=== PATIENT | female | born 1945 | race Caucasian/White ===

== ENCOUNTER 2019-11-07 15:46 | Outpatient (CLI) | payer OTHER, SELFPAY ==
--- NOTE | ~2019-11-07 | XR_ITS ---
EXAMINATION: XR abdomen/kub 1V EXAM DATE: 11/07/2019 16:20 INDICATION: Gross hematuria. TECHNIQUE: Frontal projection(s) of the abdomen for interpretation. Correlation is made to CT urogram same date. FINDINGS: No suspicious soft tissue calcifications identified. There are cholecystectomy clips. Nono bstructive bowel gas pattern. Moderate bilateral hip primary osteoarthritis. IMPRESSION: Unremarkable KUB exam. Reviewed, dictated and finalized at location A. IMPRESSION: Unremarkable KUB exam.
--- NOTE | ~2019-11-07 | CT_ITS ---
EXAMINATION: CT abdomen pelvis wo/w con EXAM DATE: 11/07/2019 16:56 INDICATION: Hematuria. TECHNIQUE: Spiral CT of the abdomen and pelvis was performed without contrast. The patient was then injected with small bolus intravenous Omnipaque 350, followed by delay of approximately 10 minutes to allow collecting system to opacify. A post contrast scan abdomen and pelvis was performed during inj ection of remaining contrast. A total of 130 cc intravenous contrast was administered. The dose-zunilda th product (DLP) for this examination was 2574.15 mGy-cm. The exposure was tailored according to pat ient size (auto mA exposure control), and iterative reconstruction (ASIR) was used as additional dose reduction technique. There is no prior study for comparison. FINDINGS: There is no hydronephrosis or nephrolithiasis. Left renal peripelvic cyst measuring about 1 x 2 cm. The kidneys enhance symmetrically. There are no suspicious renal lesions. The calyces an d opacified portions of ureters are unremarkable, without filling defects or focal suspicious strictu res. The bladder is unremarkable. The uterus is not identified and has likely been surgically resec jayda. The liver, spleen, adrenal glands and pancreas are unremarkable. There are cholecystectomy clips. T here is no retroperitoneal or pelvic lymphadenopathy. There is mild to moderate scattered arteriosc lerotic disease. The appendix is normal. There is small sliding gastroesophageal hiatal hernia. There is expected am ount of colonic stool. There is fair amount of pelvic fat surrounding the rectum, could indicate rect al prolapse. No free intraperitoneal gas. The heart is normal in size. There are no pericardial or pleural effusions. The lung bases are unremarkable. There are no osteoblastic or osteolytic lesion s identified. IMPRESSION: 1. No suspicious genitourinary findings. 2. Possible rectal prolapse. Reviewed, dictated and finalized at location A.
[2019-11-07 16:33] LABS: Estimated Glomerular Filt Rate > 60
== END 2019-11-07 15:47 | disposition home or self-care (01) ==
PROVIDERS: PCP Internal Medicine Geriatric Medicine; Visit Provider Nurse Practitioner Adult Health
DX: R31.0 Gross hematuria (principal)
CPT/HCPCS: 36415; 74018; 74178; Q9967

== ENCOUNTER 2019-12-10 10:36 | Outpatient (CLI) | payer OTHER, SELFPAY ==
--- NOTE | 2019-12-10 10:45 | ECG_ITS ---
Measurements Intervals [place] Rate: 70 P: 13 PA: 191 QRS: -69 QRSD: 138 T: -24 QT: 426 QTc: 462 Interpretive Statements SINUS RHYTHM RIGHT BUNDLE BRANCH BLOCK ANTEROLATERAL INFARCT, AGE INDETERMINATE INFERIOR INFARCT, AGE INDETERMINATE BASELINE ARTIFACT- I, II, III, AVR, AVL, AVF ABNORMAL ECG Electronically Signed On 12-10-2019 11:18:17 CDT by Ji Larson D.O.
[2019-12-10 11:12] LABS: Anion Gap 7 mmol/L (8-16); Blood Urea Nitrogen 15 mg/dL (7-17); Calcium 9.4 mg/dL (8.4-10.2); Carbon Dioxide 31 mmol/L (22-30); Chloride 98 mmol/L (98-107); Estimated Glomerular Filt Rate > 60; Glucose 217 mg/dL (65-105); Potassium 4.6 mmol/L (3.4-5.0); Sodium 136 mmol/L (137-145)
== END 2019-12-10 10:37 | disposition home or self-care (01) ==
LOC: ANHSURGERY 10:40
PROVIDERS: Anesthesiology; PCP Internal Medicine Geriatric Medicine; Visit Provider Urology
DX: E11.9 Type 2 diabetes mellitus without complications (principal); I10 Essential (primary) hypertension; I45.10 Unspecified right bundle-branch block; R94.39 Abnormal result of other cardiovascular function study
CPT/HCPCS: 36415; 80048; 93005

== ENCOUNTER 2019-12-11 00:07 | Outpatient (CLI) | payer OTHER, SELFPAY ==
[2019-12-11 17:25] LABS: SARS-CoV-2 RNA PCR Negative
== END 2019-12-11 00:08 | disposition home or self-care (01) ==
LOC: ANHCOVIDDT 00:08
PROVIDERS: PCP Internal Medicine Geriatric Medicine; Visit Provider Urology
DX: Z01.812 Encounter for preprocedural laboratory examination (principal); Z20.828 Contact with and (suspected) exposure to other viral communicable diseases
CPT/HCPCS: 87635; C9803; U0003

== ENCOUNTER 2019-12-13 00:44 | Day surgery (SDC) | payer OTHER, SELFPAY ==
[2019-12-06 13:15] VITALS: BMI 34.8
[2019-12-13] VITALS (7 sets, daily range): BP systolic 101–144; BP diastolic 44–61; PULSE 62–73; RESP 9–20; TEMP 36.1–36.4; O2SAT 94–100
--- NOTE | ~2019-12-13 | XR_ITS ---
EXAMINATION: XR retrograde pyelogram BI DATE: 12/13/2019 13:34 CDT INDICATION: Gross hematuria TECHNIQUE: A fluoroscopic images from a bilateral retrograde pyelogram are submitted for review.] 18 seconds of fluoroscopy. FINDINGS: There is normal contrast opacification of the ureters and renal collecting systems which ar e normal in course and caliber. No persistent filling defects, strictures or extravasation of contras t. There are cholecystectomy clips. IMPRESSION: 1. Unremarkable bilateral retrograde pyelogram.. Correlate with real time procedural findings for de tails. Reviewed, dictated and finalized at location B. IMPRESSION: 1. Unremarkable bilateral retrograde pyelogram.. Correlate with real time proc edural findings for details.
--- NOTE | 2019-12-13 07:02 | WPDHPUPDATE1 ---
History and Physical Update Update Date/Time: 12/13/19 07:02 History and Physical has been reviewed, including an updated exam of the patient. There are NO changes in the patient's condition. Risks, benefits, and alternatives have been discussed and questions answered. Patient agrees to proceed with procedure.
--- NOTE | 2019-12-13 10:59 | WPDANESEPPF ---
Anes - Initial Pre Proc Eval Procedure: Operation Date: 12/13/19 12:45 Proposed Procedures p Cystoscopy, Bilateral Retrograde Pyelogram - Jamie Guaman MD s Transurethral Resection Bladder Tumor - Jamie Guaman MD Date/Time: 12/13/19 10:59 Surgeon: Jamie Guaman MD Pre Op Diagnosis: Bladder Ca Patient Data Age: 74 Gender: F Height: 5 ft 4 in Weight: 92 kg Allergies Allergy/AdvReac Type Severity Reaction Status Date / Time No Known Allergies Allergy Verified 12/06/19 13:06 Home Medications Medication Instructions Recorded Confirmed Type aspirin [Aspirin Low Dose] 81 mg PO HS 12/06/19 12/06/19 History cyanocobalamin (vitamin B-12) 1,000 mcg PO HS 12/06/19 12/06/19 History [Vitamin B-12] dulaglutide [Trulicity] 1.5 mg SUBCUT WEEKLY 12/06/19 12/06/19 History glimepiride 2 mg PO HS 12/06/19 12/06/19 History metformin 2,000 mg PO HS 12/06/19 12/06/19 History metoprolol succinate 100 mg PO HS 12/06/19 12/06/19 History olmesartan-hydrochlorothiazide 1 tablet PO HS 12/06/19 12/06/19 History rosuvastatin 20 mg PO HS 12/06/19 12/06/19 History sertraline 50 mg PO HS 12/06/19 12/06/19 History Patient hx anesthesia problems: none Family hx anesthesia problems: none PMFSH Past Medical History Medical History Bladder cancer Depression Diabetes Hyperlipidemia Hypertension Social History Social History Smoking status: Never smoker Alcohol intake: never Substance use: never Living arrangements: with family Additional living arrangements comments: LIVES WITH SISTER-[facility]J Spiritual care concerns: No Anes - Eval Final PreProcedure Day of Procedure 12/13/19 10:59 Patient weight: obese Heart: regular rate and rhythm Lungs: clear to auscultation Airway: Mallampati scale class II Neurological: alert and oriented Last oral intake: >/= 8 hours ASA classification: III Emergent: no Anesthetic plan: proceed Anesthesia type and monitoring: general LMA and standard monitoring Informed Consent: The patient's anesthetic plan and its attendant risks and benefits were discussed with the patient/family/POA. Questions were solicited and answers provided to the satisfaction of the patient/family/POA.
[2019-12-13 11:24] LABS: Glucose Point of Care 216 (65-105)
[2019-12-13] MEDS: LACTATED RINGERS 1,000 ML 30 ML IV CONT (11:32)
--- NOTE | 2019-12-13 11:37 | SUR.PREOP ---
1138 - dr. romo aware of accucheck of 216. no orders received
[2019-12-13] MEDS: ceFAZolin 2 GM/D5W 50 ML 2 GM/50 ML BAG IVPB (12:39)
--- NOTE | 2019-12-13 13:05 | P.OP_ITS ---
Procedure Note - Detailed Date of procedure: 12/13/19 Pre-op diagnosis: Bladder Ca Post-op diagnosis: same Procedure performed: 1. TURBT (medium). 2. Cysto., bilateral PRG Description of procedure: The patient was brought to the operative suite where she is prepped and draped in a routine sterile fashion while in the dorsal lithotomy position. This is done after the uneventful administration of general LMA anesthetic. A 24F resectoscope sheath was placed in the bladder and the bladder is circumferentially inspected carefully. Retrograde pyelography is undertaken with an 8 F bulb-tipped catheter. Both ureters and collecting sys tems appeared normal without obstruction or filling defects. 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 This area is resected in its entirety with an attempt made to include detrusor muscle for pathological evaluation of invasion. The base and periphery of this resected side is cauterized with a loop electrode. The bladder is emptied and t he resectoscope was removed. The patient is taken to the recovery room having tolerated this procedure well. Anesthesia: GLMA Surgeon: Jamie Guaman MD Estimated blood loss (mL): 5 Drains: No Packing: No Pathology: yes (Bladder tumor) Complications: No immediate complications Condition: stable Disposition: PACU
[2019-12-13 13:41] LABS: Glucose Point of Care 182 (65-105)
== END 2019-12-13 15:00 | disposition home or self-care (01) ==
PROVIDERS: PCP Internal Medicine Geriatric Medicine; Visit Provider Urology
PROC: (CPT 52352; principal; 2019-12-13 12:45)
PROC: 0TBB8ZZ Excision of Bladder, Via Natural or Artificial Opening Endoscopic (ICD-10-PCS; CPT 52235; 2019-12-13 12:45)
DX: C67.3 Malignant neoplasm of anterior wall of bladder (principal); I10 Essential (primary) hypertension; E78.5 Hyperlipidemia, unspecified; E11.9 Type 2 diabetes mellitus without complications; F32.9 Major depressive disorder, single episode, unspecified; Z79.84 Long term (current) use of oral hypoglycemic drugs; Z79.82 Long term (current) use of aspirin; E66.9 Obesity, unspecified; Z68.34 Body mass index [BMI] 34.0-34.9, adult
CPT/HCPCS: 52235; 74420; 88305; 88307; A9270; C1758; C1769; J0690; J1100; J2405; J2704; J3010; J7120; Q9966

== ENCOUNTER 2020-04-07 00:44 | Outpatient (CLI) | payer OTHER, SELFPAY ==
[2020-04-07 19:06] LABS: SARS-CoV-2 RNA PCR Positive
== END 2020-04-07 00:45 | disposition home or self-care (01) ==
LOC: ANHCOVIDDT 00:44
PROVIDERS: PCP Internal Medicine Geriatric Medicine; Visit Provider Urology
DX: Z01.812 Encounter for preprocedural laboratory examination (principal); Z20.822 Contact with and (suspected) exposure to COVID-19
CPT/HCPCS: C9803; U0003

== ENCOUNTER 2020-04-07 08:40 | Outpatient (CLI) | payer OTHER, SELFPAY ==
[2020-04-07 09:11] LABS: Anion Gap 4 mmol/L (8-16); Blood Urea Nitrogen 12 mg/dL (7-17); Calcium 8.3 mg/dL (8.4-10.2); Carbon Dioxide 31 mmol/L (22-30); Chloride 105 mmol/L (98-107); Estimated Glomerular Filt Rate > 60; Glucose 114 mg/dL (65-105); Potassium 3.6 mmol/L (3.4-5.0); Sodium 140 mmol/L (137-145)
== END 2020-04-07 08:41 | disposition home or self-care (01) ==
LOC: ANHSURGERY 08:41
PROVIDERS: Anesthesiology; PCP Internal Medicine Geriatric Medicine; Visit Provider Urology
DX: Z01.818 Encounter for other preprocedural examination (principal); E11.9 Type 2 diabetes mellitus without complications
CPT/HCPCS: 36415; 80048

== ENCOUNTER 2020-05-08 00:42 | Day surgery (SDC) | payer OTHER, SELFPAY ==
[2020-04-02 14:59] VITALS: BMI 34.8
--- NOTE | 2020-04-07 07:53 | P.HP_ITS ---
H&P: HPI History of Present Illness Date/Time: 04/07/20 07:53 Chief Complaint: Recurrent bladder tumor Narrative: Rafia Rivas is a 74 year old female who had her 1st bladder tumor resection in November 2019. She now was found to have a 2 centimeter papillary recurrent neoplasm in the anterior bladder wall. Review of Systems Cardiovascular: Cardiovascular: Denies chest pain, Denies lightheadedness, Denies palpitations and Denies dyspnea Respiratory: Respiratory: Denies dyspnea Gastrointestinal: Gastrointestinal: Denies diarrhea, Denies nausea and Denies vomiting Genitourinary: Genitourinary: Denies hematuria and Denies dysuria Endocrine: Endocrine: Denies palpitations PMFSH Past Medical History Medical History (Updated 04/07/20 @ 07:55 by Jamie Guaman MD) Bladder cancer Depression Diabetes Hyperlipidemia Hypertension Social History Social History Smoking status: Never smoker Alcohol intake: never Substance use: never Additional living arrangements comments: LIVES WITH ELDERLY/ILL SISTER- CURRENTLY IN HOSPITAL Spiritual care concerns: No Meds Home Medications and Allergies Home Medications Medication Instructions Recorded Confirmed Type Trulicity 1.5 mg SUBCUT WEEKLY 12/06/19 04/02/20 History aspirin [Aspirin Low Dose] 81 mg PO HS 12/06/19 04/02/20 History cyanocobalamin (vitamin B-12) 1,000 mcg PO HS 12/06/19 04/02/20 History [Vitamin B-12] glimepiride 2 mg PO HS 12/06/19 04/02/20 History metformin 2,000 mg PO HS 12/06/19 04/02/20 History metoprolol succinate 100 mg PO HS 12/06/19 04/02/20 History olmesartan-hydrochlorothiazide 1 tablet PO HS 12/06/19 04/02/20 History rosuvastatin 20 mg PO HS 12/06/19 04/02/20 History sertraline 50 mg PO HS 12/06/19 04/02/20 History hydrocodone-acetaminophen 1 - 2 tablet PO Q6H PRN #20 tablet 12/13/19 04/02/20 Rx Allergies Allergy/AdvReac Type Severity Reaction Status Date / Time No Known Allergies Allergy Verified 04/02/20 14:51 Exam Const: General: no acute distress Resp: Effort & Inspection: normal respiratory effort GI: Inspection: non-distended GI Palp: No abdominal tenderness and No Guarding due to palpation present (GI) Auscultation: normal bowel sounds Assessment and Plan Assessment and plan (1) Cancer of anterior wall of urinary bladder: Code(s): C67.3 - Malignant neoplasm of anterior wall of bladder Status: Acute Assessment and Plan: * TURBT
--- NOTE | 2020-05-05 08:03 | P.HP_ITS ---
History of Present Illness History of Present Illness Consent: Risks, benefits, and alternatives have been discussed and questions answered. Patient agrees to proceed with procedure. Chief complaint: bladder CA Narrative: Rafia Rivas is a 74 year old female Who underwent her initial bladder tumor resection and December 2019. Her 1st surveillance cystoscopy showed approximately a 2 cm recurrence in the anterior bladder wall. See elects for TURBT. She is aware the risks, including but not limited to, adverse cardiopulmonary events, postoperative hematuria and compromise to the bladder wall. Review of Systems Cardiovascular: Cardiovascular: Denies chest pain, Denies lightheadedness, Den ies palpitations and Denies dyspnea Respiratory: Respiratory: Denies dyspnea Gastrointestinal: Gastrointestinal: Denies diarrhea, Denies nausea and Denies vomiting Genitourinary: Genitourinary: Denies hematuria and Denies dysuria Endocrine: Endocrine: Denies palpitations PMFSH Past Medical History Medical History Bladder cancer Depression Diabetes Hyperlipidemia Hypertension Social History Social History Smoking status: Never smoker Alcohol intake: never Substance use: never Additional living arrangements comments: LIVES WITH ELDERLY/ILL SISTER- CURRENTLY IN HOSPITAL Spiritual care concerns: No Meds Home Medications and Allergies Home Medications Medication Instructions Recorded Confirmed Type Trulicity 1.5 mg SUBCUT WEEKLY 12/06/19 04/24/20 History aspirin [Aspirin Low Dose] 81 mg PO HS 12/06/19 04/24/20 History cyanocobalamin (vitamin B-12) 1,000 mcg PO HS 12/06/19 04/24/20 History [Vitamin B-12] glimepiride 2 mg PO HS 12/06/19 04/24/20 History metformin 2,000 mg PO HS 12/06/19 04/24/20 History metoprolol succinate 100 mg PO HS 12/06/19 04/24/20 History olmesartan-hydrochlorothiazide 1 tablet PO HS 12/06/19 04/24/20 History rosuvastatin 20 mg PO HS 12/06/19 04/24/20 History sertraline 50 mg PO HS 12/06/19 04/24/20 History hydrocodone-acetaminophen 1 - 2 tablet PO Q6H PRN #20 tablet 12/13/19 04/24/20 Rx Allergies Allergy/AdvReac Type Severity Reaction Status Date / Time No Known Allergies Allergy Verified 04/24/20 13:36 Exam Const: General: no acute distress Resp: Effort & Inspection: normal respiratory effort GI: Inspection: non-distended GI Palp: No abdominal tenderness and No Guarding due to palpation present (GI) Auscultation: normal bowel sounds Assessment and Plan Assessment and plan (1) Cancer of anterior wall of urinary bladder: Code(s): C67.3 - Malignant neoplasm of anterior wall of bladder Status: Acute Additional Plan * TURBT
[2020-05-08] VITALS (9 sets, daily range): BP systolic 72–149; BP diastolic 34–78; PULSE 58–77; RESP 10–15; TEMP 36.4–36.5; O2SAT 93–100
--- NOTE | 2020-05-08 06:36 | WPDHPUPDATE1 ---
History and Physical Update Update Date/Time: 05/08/20 06:36 History and Physical has been reviewed, including an updated exam of the patient. There are NO changes in the patient's condition. Risks, benefits, and alternatives have been discussed and questions answered. Patient agrees to proceed with procedure.
[2020-05-08] MEDS: LACTATED RINGERS 1,000 ML 30 ML IV CONT ×2 (09:53→13:11)
[2020-05-08 10:01] LABS: Glucose Point of Care 177 (65-105)
--- NOTE | 2020-05-08 11:46 | P.PNAN_ITS ---
Anes - Initial Pre Proc Eval Procedure: Operation Date: 05/08/20 11:30 Proposed Procedures p Trans Urethral Resection Bladder Tumor - Jamie Guaman MD Date/Time: 05/08/20 11:46 Surgeon: Jamie Guaman MD Pre Op Diagnosis: bladder CA Patient Data Age: 74 Gender: F Height: 5 ft 4 in Weight: 91 kg Last Vital Signs Temp 97.5 F L 05/08/20 09:25 Pulse 69 05/08/20 09:25 Resp 14 05/08/20 09:25 BP 149/63 H 05/08/20 09:25 Pulse Ox 100 05/08/20 09:25 Allergies Allergy/AdvReac Type Severity Reaction Status Date / Time Penicillins Allergy Mild Itching Verified 05/08/20 09:34 Home Medications Medication Instructions Recorded Confirmed Type Trulicity 1.5 mg SUBCUT WEEKLY 12/06/19 05/08/20 History aspirin [Aspirin Low Dose] 81 mg PO HS 12/06/19 05/08/20 History cyanocobalamin (vitamin B-12) 1,000 mcg PO HS 12/06/19 05/08/20 History [Vitamin B-12] glimepiride 2 mg PO HS 12/06/19 05/08/20 History metformin 2,000 mg PO HS 12/06/19 05/08/20 History metoprolol succinate 100 mg PO HS 12/06/19 05/08/20 History olmesartan-hydrochlorothiazide 1 tablet PO HS 12/06/19 05/08/20 History rosuvastatin 20 mg PO HS 12/06/19 05/08/20 History sertraline 50 mg PO HS 12/06/19 05/08/20 History hydrocodone-acetaminophen 1 - 2 tablet PO Q6H PRN #20 tablet 12/13/19 05/08/20 Rx Laboratory Tests 05/08/20 09:56 POC Capillary Glucose 177 mg/dl H mg/dl (65-105) Patient hx anesthesia problems: none Family hx anesthesia problems: none PMFSH Past Medical History Medical History Bladder cancer Depression Diabetes Hyperlipidemia Hypertension Social History Social History Smoking status: Never smoker Alcohol intake: never Substance use: never Living arrangements: with family Additional living arrangements comments: LIVES WITH ELDERLY/ILL SISTER- CURRENTLY IN HOSPITAL Spiritual care concerns: No Anes - Eval Final PreProcedure Day of Procedure 05/08/20 11:46 Patient weight: obese Heart: regular rate and rhythm Lungs: clear to auscultation Airway: Mallampati scale class III Neurological: alert and oriented Last oral intake: >/= 8 hours ASA classification: III Emergent: no Anesthetic plan: proceed Anesthesia type and monitoring: general LMA and standard monitoring Informed Consent: The patient's anesthetic plan and its attendant risks and benefits were discussed with the patient/family/POA. Questions were solicited and answers provided to the satisfaction of the patient/family/POA.
[2020-05-08] MEDS: ceFAZolin 2 GM/D5W 50 ML 2 GM/50 ML BAG IVPB (11:50)
[2020-05-08] MEDS: LIDOCAINE HCL 2% GEL UROJET 10 ML PKG MUCOUS MEM (12:03)
--- NOTE | 2020-05-08 12:13 | PM.PROC ---
Procedure Note - Detailed Date of procedure: 05/08/20 Pre-op diagnosis: bladder CA Post-op diagnosis: same Procedure performed: TURBT (medium, 3-cm) Description of procedure: The patient was brought to the operative suite where she is prepped and draped in a routine sterile fashion while in the dorsal lithotomy position. This is done after the uneventful administration of systemic sedation. 2% Xylocaine jelly is introduced intraurethrally and allowed to stand for an appropriate period of time. A 24F resectoscope sheath was placed in the bladder and the bladder is circumferentially inspected carefully. 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 This area is resected in its entirety with an attempt made to include detrusor muscle for pathological evaluation of invasion. The base and periphery of this resected side is cauterized with a loop electrode. The bladder is emptied and the resectoscope was removed. The patient is taken to the recovery room having tolerated this procedure well. Anesthesia: GLMA Surgeon: Jamie Guaman MD Estimated blood loss (mL): 0 Drains: No Packing: No Pathology: yes (Bladder tumor) Complications: No immediate complications Condition: stable Disposition: PACU
[2020-05-08 12:28] LABS: Glucose Point of Care 134 (65-105)
--- NOTE | 2020-05-08 14:39 | SUR.PHASEII ---
Patient is ready to go and just waiting for a ride.
== END 2020-05-08 15:13 | disposition home or self-care (01) ==
PROVIDERS: PCP Internal Medicine Geriatric Medicine; Visit Provider Urology
PROC: 0TBB8ZZ Excision of Bladder, Via Natural or Artificial Opening Endoscopic (ICD-10-PCS; CPT 52235; principal; 2020-05-08 11:30)
DX: C67.3 Malignant neoplasm of anterior wall of bladder (principal); I10 Essential (primary) hypertension; E78.5 Hyperlipidemia, unspecified; E11.9 Type 2 diabetes mellitus without complications; F32.9 Major depressive disorder, single episode, unspecified; Z79.84 Long term (current) use of oral hypoglycemic drugs; Z79.82 Long term (current) use of aspirin; E66.9 Obesity, unspecified; Z68.34 Body mass index [BMI] 34.0-34.9, adult
CPT/HCPCS: 52235; 36415; 80048; 82948; 88305; 88307; A9270; C9803; J0690; J2405; J2704; J3010; J7120; U0003

== ENCOUNTER → 2020-08-25 02:10 | Outpatient (CLI) | payer OTHER, SELFPAY ==
[2020-08-25 17:04] LABS: SARS-CoV-2 RNA PCR Negative
== END ==
PROVIDERS: PCP Internal Medicine Geriatric Medicine; Visit Provider Urology
DX: Z01.812 Encounter for preprocedural laboratory examination (principal); Z20.822 Contact with and (suspected) exposure to COVID-19
CPT/HCPCS: C9803; U0003; U0005

== ENCOUNTER 2020-08-26 17:11 | Outpatient (CLI) | payer OTHER, SELFPAY ==
[2020-08-26 17:49] LABS: Anion Gap 7 mmol/L (8-16); Blood Urea Nitrogen 12 mg/dL (7-17); Calcium 9.4 mg/dL (8.4-10.2); Carbon Dioxide 31 mmol/L (22-30); Chloride 104 mmol/L (98-107); Estimated Glomerular Filt Rate > 60; Glucose 155 mg/dL (65-105); Potassium 3.7 mmol/L (3.4-5.0); Sodium 142 mmol/L (137-145)
== END 2020-08-26 17:12 | disposition home or self-care (01) ==
PROVIDERS: PCP Internal Medicine Geriatric Medicine; Visit Provider Anesthesiology
DX: E11.9 Type 2 diabetes mellitus without complications (principal); Z01.818 Encounter for other preprocedural examination
CPT/HCPCS: 36415; 80048

== ENCOUNTER 2020-08-28 01:04 | Day surgery (SDC) | payer OTHER, SELFPAY ==
[2020-08-14 08:31] VITALS: BMI 36.3
--- NOTE | 2020-08-19 07:39 | P.HP_ITS ---
History of Present Illness History of Present Illness Consent: Risks, benefits, and alternatives have been discussed and questions answered. Patient agrees to proceed with procedure. Chief complaint: bladder ca Narrative: Rafia Rivas is a 75 year old female who is known to have a history of recurrent bladder tumor dating back to November 2019. Surveillance cystoscopy several weeks ago showed a tiny recurrence in the left lateral wall in a possible 2nd recurrence just above the left ureteral orifice. Review of Systems Cardiovascular: Cardiovascular: Denies chest pain, Denies lightheadedness, Denies palpitations and Denies dyspnea Respiratory: Respiratory: Denies dyspnea Gastrointestinal: Gastrointestinal: Denies diarrhea, Denies nausea and Denies vomiting Genitourinary: Genitourinary: Denies hematuria and Denies dysuria Endocrine: Endocrine: Denies palpitations [facility] Past Medical History Medical History (Updated 08/19/20 @ 07:40 by Jamie Guaman MD) Bladder cancer Depression Diabetes Hyperlipidemia Hypertension Social History Social History Smoking status: Never smoker Alcohol intake: never Substance use: never Additional living arrangements comments: SISTER Spiritual care concerns: No Meds Home Medications and Allergies Home Medications Medication Instructions Recorded Confirmed Type Trulicity 1.5 mg SUBCUT WEEKLY 12/06/19 08/14/20 History aspirin [Aspirin Low Dose] 81 mg PO HS 12/06/19 08/14/20 History cyanocobalamin (vitamin B-12) 1,000 mcg PO HS 12/06/19 08/14/20 History [Vitamin B-12] glimepiride 2 mg PO HS 12/06/19 08/14/20 History metformin 2,000 mg PO HS 12/06/19 08/14/20 History metoprolol succinate 100 mg PO HS 12/06/19 08/14/20 History olmesartan-hydrochlorothiazide 1 tablet PO HS 12/06/19 08/14/20 History rosuvastatin 20 mg PO HS 12/06/19 08/14/20 History sertraline 50 mg PO HS 12/06/19 08/14/20 History Allergies Allergy/AdvReac Type Severity Reaction Status Date / Time Penicillins Allergy Mild Itching Verified 08/14/20 08:25 Exam Const: General: no acute distress Resp: Effort & Inspection: normal respiratory effort GI: Inspection: non-distended GI Palp: No abdominal tenderness and No Guarding due to palpation present (GI) Auscultation: normal bowel sounds Assessment and Plan Assessment and plan (1) Cancer of overlapping sites of bladder: Code(s): C67.8 - Malignant neoplasm of overlapping sites of bladder Status: Acute Assessment and Plan: * TURBT followed by mitomycin-C installation
[2020-08-28] VITALS (10 sets, daily range): BP systolic 103–164; BP diastolic 56–79; PULSE 58–66; RESP 12–18; TEMP 36; O2SAT 94–100; BMI 36.2
--- NOTE | 2020-08-28 06:31 | WPDHPUPDATE1 ---
History and Physical Update Update Date/Time: 08/28/20 06:31 History and Physical has been reviewed, including an updated exam of the patient. There are NO changes in the patient's condition. Risks, benefits, and alternatives have been discussed and questions answered. Patient agrees to proceed with procedure.
[2020-08-28 08:06] LABS: Glucose Point of Care 79 mg/dl (65-105)
[2020-08-28] MEDS: LACTATED RINGERS 1,000 ML 30 ML IV CONT (08:28)
--- NOTE | 2020-08-28 08:36 | WPDANESEPPF ---
Anes - Initial Pre Proc Eval Procedure: Operation Date: 08/28/20 09:15 Proposed Procedures p Trans Urethral Resection Bladder Tumor With Mitomycin C Instillation - Jamie Guaman MD Date/Time: 08/28/20 08:36 Surgeon: Jamie Guaman MD Pre Op Diagnosis: bladder ca Patient Data Age: 75 Gender: F Height: 5 ft 3 in Weight: 92.8 kg Last Vital Signs Temp 36.0 C L 08/28/20 08:00 Pulse 63 08/28/20 08:00 Resp 18 08/28/20 08:00 BP 164/61 H 08/28/20 08:00 Pulse Ox 99 08/28/20 08:00 Allergies Allergy/AdvReac Type Severity Reaction Status Date / Time Penicillins Allergy Mild Rash Verified 08/28/20 07:40 Home Medications Medication Instructions Recorded Confirmed Type Trulicity 1.5 mg SUBCUT WEEKLY 12/06/19 08/14/20 History aspirin [Aspirin Low Dose] 81 mg PO HS 12/06/19 08/28/20 History cyanocobalamin (vitamin B-12) 1,000 mcg PO HS 12/06/19 08/28/20 History [Vitamin B-12] glimepiride 2 mg PO HS 12/06/19 08/14/20 History metformin 2,000 mg PO HS 12/06/19 08/14/20 History metoprolol succinate 100 mg PO HS 12/06/19 08/28/20 History olmesartan-hydrochlorothiazide 1 tablet PO HS 12/06/19 08/14/20 History rosuvastatin 20 mg PO HS 12/06/19 08/14/20 History sertraline 50 mg PO HS 12/06/19 08/14/20 History Laboratory Tests 08/28/20 08:03 POC Capillary Glucose 79 mg/dl mg/dl (65-105) Patient hx anesthesia problems: none Family hx anesthesia problems: none PMFSH Past Medical History Medical History Bladder cancer Depression Diabetes Hyperlipidemia Hypertension Social History Social History Smoking status: Never smoker Alcohol intake: never Substance use: never Living arrangements: with family Additional living arrangements comments: SISTER Spiritual care concerns: No Anes - Eval Final PreProcedure Day of Procedure 08/28/20 08:36 Patient weight: obese Heart: regular rate and rhythm Lungs: clear to auscultation Airway: Mallampati scale class II Neurological: alert and oriented Last oral intake: >/= 8 hours ASA classification: III Emergent: no Anesthetic plan: proceed Anesthesia type and monitoring: general LMA and standard monitoring Informed Consent: The patient's anesthetic plan and its attendant risks and benefits were discussed with the patient/family/POA. Questions were solicited and answers provided to the satisfaction of the patient/family/POA.
--- NOTE | 2020-08-28 09:25 | SUR.PREOP ---
0925- Notified patient procedure is delayed. Patient verbalized understanding.
[2020-08-28] MEDS: ceFAZolin 2 GM/D5W 50 ML 2 GM/50 ML BAG IVPB (09:53)
[2020-08-28] MEDS: LIDOCAINE HCL 2% GEL UROJET 10 ML PKG MUCOUS MEM (10:07)
--- NOTE | 2020-08-28 10:15 | P.OP_ITS ---
Procedure Note - Detailed Date of procedure: 08/28/20 Pre-op diagnosis: bladder ca Post-op diagnosis: same Procedure performed: TURBT (small, 1-2cm) Description of procedure: The patient was brought to the operative suite where she is prepped and draped in a routine sterile fashion while in the dorsal lithotomy position. This is done after the uneventful administration of systemic sedation. 2% Xylocaine jelly is introduced intraurethrally and allowed to stand for an appropriate period of time. A 24F resectoscope sheath was placed in the bladder and the bladder is circumferentially inspected carefully. She has a two papillary transitional cell carcinomas in the left posterior lateral bladder wall. These areas are resected in their entirety with an attempt made to include detrusor muscle for pathological evaluation of invasion. The base and periphery of this resected side is cauterized with a loop electrode. The bladder is emptied and the resectoscope was removed. The patient is taken to the recovery room having tolerated this procedure well. Anesthesia: GLMA Surgeon: Jamie Guaman MD [employer] Etcher: None Estimated blood loss (mL): 0 Drains: Yes Packing: No Pathology: yes Complications: No immediate complications Condition: stable Disposition: PACU
--- NOTE | 2020-08-28 10:17 | PM.PROC ---
Procedure Note - Detailed Date of procedure: 08/28/20 Pre-op diagnosis: bladder ca Post-op diagnosis: same Procedure performed: Mitomycin-C instillation Description of procedure: With the patient in the supine position, a 16F Bowser catheter is placed using sterile technique. Using a protective facemask, gown and double layer of gloves Mitomycin-C 40mm in 100cc saline is administered through the catheter/into the bladder. The catheter is then plugged. Patient was instructed to lie supine x20min, then to roll both the left and right x20 min. each. Total dwell time will be 60 min., after which the bladder will be drained and catheter removed. Anesthesia: [facility]MA and local Surgeon: Jamie Guaman MD Estimated blood loss (mL): 0 Drains: No Packing: No Pathology: none sent Complications: No immediate complications Condition: stable Disposition: PACU
[2020-08-28 10:30] LABS: Glucose Point of Care 72 mg/dl (65-105)
--- NOTE | 2020-08-28 10:46 | SUR.PHASEI ---
1040; PT AWAKE, DENIES PAIN. STATES URGE TO URINATE. CATHETER CLAMPED. PT ROTATED TO RT SIDE.
--- NOTE | 2020-08-28 10:58 | SUR.PHASEI ---
1055; PT AWAKE AND ALERT. ROTATED TO LEFT SIDE
--- NOTE | 2020-08-28 11:34 | SUR.PHASEI ---
PT WAS ROTATED EVERY 20 MINUTES. LT, RT, BACK. SOL DRAINED, 150ML STERILE NS INSTILLED, THEN SOL DC'D.
== END 2020-08-28 13:12 | disposition home or self-care (01) ==
PROVIDERS: PCP Internal Medicine Geriatric Medicine; Visit Provider Urology
PROC: 0TBB8ZZ Excision of Bladder, Via Natural or Artificial Opening Endoscopic (ICD-10-PCS; CPT 52234; principal; 2020-08-28 09:15)
DX: C67.8 Malignant neoplasm of overlapping sites of bladder (principal); E11.9 Type 2 diabetes mellitus without complications; I10 Essential (primary) hypertension; E78.5 Hyperlipidemia, unspecified; F32.9 Major depressive disorder, single episode, unspecified; Z79.84 Long term (current) use of oral hypoglycemic drugs; Z79.82 Long term (current) use of aspirin; E66.9 Obesity, unspecified; Z68.36 Body mass index [BMI] 36.0-36.9, adult
CPT/HCPCS: 52234; 51720; 36415; 80048; 82948; 88305; A9270; C9803; J0690; J1100; J2405; J2704; J3010; J7120; J9280; U0003; U0005

== ENCOUNTER 2020-11-27 09:56 | Outpatient (CLI) | payer OTHER, SELFPAY ==
--- NOTE | 2020-11-27 10:00 | ECG_ITS ---
Measurements Intervals [place] Rate: 68 P: 7 [place]: 187 QRS: -69 QRSD: 146 T: -15 QT: 424 QTc: 453 Interpretive Statements SINUS RHYTHM VENTRICULAR PREMATURE COMPLEX LEFT AXIS DEVIATION RIGHT BUNDLE BRANCH BLOCK INFERIOR INFARCT, AGE INDETERMINATE ANTEROLATERAL INFARCT, AGE INDETERMINATE BASELINE ARTIFACT- I, II, III, AVR, AVL, AVF ABNORMAL ECG Electronically Signed On 11-27-2020 10:23:40 CDT by Ji Larson D.O.
[2020-11-27 10:59] LABS: Anion Gap 9 mmol/L (8-16); Blood Urea Nitrogen 17 mg/dL (7-17); Calcium 9.7 mg/dL (8.4-10.2); Carbon Dioxide 32 mmol/L (22-30); Chloride 99 mmol/L (98-107); Estimated Glomerular Filt Rate > 60; Glucose 166 mg/dL (65-110); Potassium 3.9 mmol/L (3.4-5.0); Sodium 140 mmol/L (137-145)
== END 2020-11-27 09:57 | disposition home or self-care (01) ==
LOC: ANHSURGERY 09:58
PROVIDERS: Anesthesiology; PCP Internal Medicine Geriatric Medicine; Visit Provider Urology
DX: I10 Essential (primary) hypertension (principal); E11.9 Type 2 diabetes mellitus without complications; I45.10 Unspecified right bundle-branch block
CPT/HCPCS: 36415; 80048; 93005

== ENCOUNTER 2020-12-04 02:05 | Day surgery (SDC) | payer OTHER, SELFPAY ==
[2020-11-25 10:58] VITALS: BMI 34.0
[2020-12-04] VITALS (16 sets, daily range): BP systolic 90–145; BP diastolic 49–84; PULSE 71–90; RESP 12–18; TEMP 36.1–36.2; O2SAT 96–100; BMI 33.8
--- NOTE | 2020-12-04 07:12 | WPDHPUPDATE1 ---
History and Physical Update Update Date/Time: 12/04/20 07:12 History and Physical has been reviewed, including an updated exam of the patient. There are NO changes in the patient's condition. Risks, benefits, and alternatives have been discussed and questions answered. Patient agrees to proceed with procedure.
[2020-12-04 07:44] LABS: Glucose Point of Care 144 mg/dl (65-105)
[2020-12-04] MEDS: LACTATED RINGERS 1,000 ML 30 ML IV CONT (07:50)
--- NOTE | 2020-12-04 07:50 | P.PNAN_ITS ---
Anes - Initial Pre Proc Eval Procedure: Operation Date: 12/04/20 09:00 Proposed Procedures p Trans Urethral Resection Bladder Tumor with Gemcitabine Instillation - Jamie Guaman MD Date/Time: 12/04/20 07:50 Surgeon: Jamie Guaman MD Pre Op Diagnosis: bladder cancer Patient Data Age: 75 Gender: F Height: 1.63 m Weight: 89.81 kg Allergies Allergy/AdvReac Type Severity Reaction Status Date / Time Penicillins Allergy Mild Rash Verified 12/04/20 07:48 Home Medications Medication Instructions Recorded Confirmed Type Trulicity 1.5 mg SUBCUT WEEKLY 12/06/19 11/25/20 History aspirin [Aspirin Low Dose] 81 mg PO HS 12/06/19 11/25/20 History cyanocobalamin (vitamin B-12) 1,000 mcg PO HS 12/06/19 11/25/20 History [Vitamin B-12] glimepiride 2 mg PO HS 12/06/19 11/25/20 History metformin 2,000 mg PO HS 12/06/19 11/25/20 History metoprolol succinate 100 mg PO HS 12/06/19 11/25/20 History olmesartan-hydrochlorothiazide 1 tablet PO HS 12/06/19 11/25/20 History rosuvastatin 20 mg PO HS 12/06/19 11/25/20 History sertraline 50 mg PO HS 12/06/19 11/25/20 History hydrocodone-acetaminophen 1 - 2 tablet PO Q6H PRN #20 tablet 08/28/20 11/25/20 Rx Laboratory Tests 12/04/20 07:41 POC Capillary Glucose 144 mg/dl H mg/dl (65-105) Patient hx anesthesia problems: none Family hx anesthesia problems: none [facility] Past Medical History Medical History Bladder cancer Depression Diabetes Hyperlipidemia Hypertension Social History Social History Smoking status: Never smoker Alcohol intake: never Substance use: never Living arrangements: with family Additional living arrangements comments: SISTER Spiritual care concerns: No Anes - Eval Final PreProcedure Day of Procedure 12/04/20 07:50 Patient weight: obese Heart: regular rate and rhythm Lungs: clear to auscultation Airway: Mallampati scale class II Neurological: alert and oriented Last oral intake: >/= 8 hours ASA classification: III Emergent: no Anesthetic plan: proceed Anesthesia type and monitoring: general GIVS and standard monitoring Informed Consent: The patient's anesthetic plan and its attendant risks and benefits were discussed with the patient/family/POA. Questions were solicited and answers provided to the satisfaction of the patient/family/POA.
[2020-12-04] MEDS: levoFLOXacin 500 MG/D5W 100 ML 500 MG/100 ML BAG 100 MG IVPB (08:43)
[2020-12-04] MEDS: LIDOCAINE HCL 2% GEL UROJET 10 ML PKG MUCOUS MEM (09:00)
--- NOTE | 2020-12-04 09:14 | W.PM.PROC2 ---
Procedure Note - Detailed Date of Procedure 12/04/20 Pre-op Diagnosis Recurrent bladder cancer Post-op Diagnosis same Procedure Performed TURBT (small, 2cm) Surgeon Jamie Guaman MD Anesthesia general Description of Procedure The patient was brought to the operative suite where she is prepped and draped in a routine sterile fashion while in the dorsal lithotomy position. This is done after the uneventful administration of systemic sedation. 2% Xylocaine jelly is introduced intraurethrally and allowed to stand for an appropriate period of time. A 24F resectoscope sheath was placed in the bladder and the bladder is circumferentially inspected carefully. 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 This area is resected in its entirety with an attempt made to include detrusor muscle for pathological evaluation of invasion. The base and periphery of this resected side is cauterized with a loop electrode. The bladder is emptied and the resectoscope was removed. The patient is taken to the recovery room having tolerated this procedure well. Estimated Blood Loss 0 Drains Yes Packing No Pathology yes Complications No immediate complications Condition stable Disposition PACU
--- NOTE | 2020-12-04 09:17 | W.PM.PROC2 ---
Procedure Note - Detailed Date of Procedure 12/04/20 Pre-op Diagnosis Bladder cancer Post-op Diagnosis same Procedure Performed Gemcitabine instillation Surgeon Jamei Guaman MD Anesthesia none Description of Procedure With the patient in the supine position, a 16F Bowser catheter is placed using sterile technique. Using a protective facemask, gown and double layer of gloves Gemcitabine 2gm in 100cc saline is administered through the catheter/into the bladder. The catheter is then plugged. Patient was instructed to lie supine x20min, then to roll both the left and right x20 min. each. Total dwell time will be 60 min., after which the bladder will be drained and catheter removed. Estimated Blood Loss 0 Drains Yes Packing No Pathology none sent Complications No immediate complications Condition stable Disposition PACU
[2020-12-04] MEDS: SODIUM CHLORIDE 0.9% IV 23.7 ML, GEMCITABINE HCL 1,000 MG BLADDER ×2 (09:39)
[2020-12-04 10:02] LABS: Glucose Point of Care 118 mg/dl (65-105)
--- NOTE | 2020-12-04 10:40 | SUR.PHASEI ---
1040- Gemcitabine drained from patient's bladder into read catheter bag at this time per orders.
--- NOTE | 2020-12-04 13:32 | SUR.PHASEII ---
1330 PT MEETS ANESTHESIA DISCHARGE CRITERIA. PT DRESSED & WAITING FOR A RIDE PICK-UP.
== END 2020-12-04 14:32 | disposition home or self-care (01) ==
PROVIDERS: PCP Internal Medicine Geriatric Medicine; Visit Provider Urology
PROC: 0TBB8ZZ Excision of Bladder, Via Natural or Artificial Opening Endoscopic (ICD-10-PCS; CPT 52234; principal; 2020-12-04 09:00)
DX: C67.2 Malignant neoplasm of lateral wall of bladder (principal); E11.9 Type 2 diabetes mellitus without complications; I10 Essential (primary) hypertension; E78.5 Hyperlipidemia, unspecified; F32.9 Major depressive disorder, single episode, unspecified; E66.9 Obesity, unspecified; Z68.33 Body mass index [BMI] 33.0-33.9, adult; Z79.82 Long term (current) use of aspirin; Z79.84 Long term (current) use of oral hypoglycemic drugs
CPT/HCPCS: 52234; 51720; 82948; 88305; 88307; A9270; J1956; J2405; J2704; J3010; J7120; J9201